=== PATIENT | female | born 1990 | race Caucasian/White ===

== ENCOUNTER 2019-03-17 05:30 | Inpatient (IN) | payer OTHER ==
[2019-03-17 06:45] VITALS: BMI 37.7
[2019-03-17] MEDS ORDERED: CITRIC ACID/SODIUM CITRATE 30 ML UNIT-DOSE CUP PO ONE (06:45)
[2019-03-17] MEDS ORDERED: ELECTROLYTE-148 SOLN 500 ML IV ONE (06:45)
[2019-03-17] MEDS ORDERED: OXYTOCIN 20 UNITS in 0.9% NS 40 UNIT/2,000 ML INFUS.BAG IV ONE (07:30)
[2019-03-17] MEDS ORDERED: morphine SULFATE/PF 0.5 MG/ML (2cc Syringe - QUVA) ONE (07:37)
[2019-03-17] MEDS ORDERED: SUCCINYLCHOLINE CHLORIDE 200 MG/10 ML SYRINGE ONE (07:37)
[2019-03-17] MEDS ORDERED: PROPOFOL 20 ML ONE (07:37)
[2019-03-17] MEDS ORDERED: ELECTROLYTE-148 SOLN 1,000 ML IV SCH ×2 (07:46→09:00)
[2019-03-17] MEDS ORDERED: ePHEDrine SULFATE 50 MG/1 ML AMPULE ONE (07:51)
--- NOTE | 2019-03-17 08:58 | HP ---
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: Alzheimer's, CVA, Dementia, Migraine, Multiple Sclerosis, Peripheral Neuropathy, Parkinson's, Seizure, Syncope, TIA, Vertigo, Other Cardiovascular: No: AFIB, Aneurysm, Aortic Insufficiency, Aortic Stenosis, CAD, CHF, Deep Vein Thrombosis, HTN, Hyperlipdemia, OK, Mitral Insufficiency, Mitral Stenosis, Murmur, Pulmonary Hypertension, Other Pulmonary: No: Asthma, Bronchitis, Cancer, COPD, O2 Dependent, Pneumonia, Previously Intubated, Pulmonary Embolus, Pulmonary Fibrosis, Sleep Apnea, Other Gastrointestinal: No: Ascites, Cancer, Constipation, Crohn's Disease, Diverticulitis, Diverticulosis, Esophageal Varices, Gastritis, GERD, GI Bleed, Hemorrhoids, Hiatal Hernia, Inflamatory Bowel Disease, Irritable Bowel Disease, Pancreatitis, Peptic Ulcer Disease, Ulcerative Colitis, Other Hepatobiliary: No: Cirrhosis, Cholelithiasis, Cholecystitis, Choledocholithiasis , Hepatitis A, Hepatitis B, Hepatitis C, Other Renal/: No: Renal Failure, Renal Inusuff, BPH, Cancer, Hematuria, Hemodialysis , Neurogenic Bladder, Renal Calculi, UTI, Other Reproductive: No: Ectopic , Endometriosis, Fibroids, PID, Polycystic Ovary Syndrome, Postmenopausal, Other ...: 2 ...Para: 0 ...Term: 0 ...: 0 ...Spon : 0 ...Induced : 1 ...Multiple Gestation: 0 ... Weeks Gestation by Dates: 37 ...EDC by Adonis: 04/05/19 Heme/Onc: No: Anemia, B12 Deficiency, Bleeding Disorder, Cancer, Current Chemotherapy, Current Radiation Therapy, Hemochromatosis, Hypercoaguable State, Myeloproliferative Synd, Sickle Cell Disease, Sickle Cell Trait, Thrombocytopenia, Other Infectious Disease: No: AIDS, C-Diff, Herpes Zoster, HIV, MRSA, STD's, Tuberculosis, VREF, Other Psych: No: Addictions, Anxiety, Bipolar, Depression, Panic, Psychosis, Schizophrenia, Other Musculoskeletal: No: Bursitis, Chronic low back pain, Hemiparesis, Hemiplegia, Osteoarthritis, Paraplegia, Other Rheumatology: No: Fibromyalgia, Gout, Lupus, Rheumatoid Arthritis, Sarcoidosis, Vasculitis, Other ENT: No: Allergic Rhinitis, Sinusitis, Other Endocrine: No: Lewis's Disease, Myles's Disease, Diabetes Insipidus, Diabetes Mellitus, Hyperparathyroidism, Hyperthyroidism, Hypothyroidism, Osteopenia, SIADH, Other Dermatology: No: Basal Cell, Cellulitis, Eczema, Melanoma, Psoriasis, Squamous Cell, Other - Past Surgical History Past Surgical History: No: None, AAA Repair, AICD, Amputation, Appendectomy, Arthrosocopy, AV Fistula/Graft, Bariatric Surgery, Breast Biopsy, Bypass, CABG, Carotid Endarterectomy, Cataract Removal, Cholecystectomy, Colectomy, Colonoscopy, Colostomy, Craniotomy, , Cystectomy, Hernia Repair, Hysterectomy, Ileal Conduit, Ileosotomy, Joint Replacement, Kidney Transplant, Laminectomy, Liver Transplant, Mastectomy, Nephrectomy, Oopherectomy, Orchiectomy, Permanent Pacemaker, Prostatectomy, Splenectomy, Stent, Thoracotomy , TURP, Tonsillectomy, Tubal Ligation, Upper Endoscopy, Valve Replacement, Vasectomy, Vein Stripping/Ligation Hx Myomectomy: No Hx Transabdominal Cerclage: No - Advance Directives Advance Directives: Yes: Living Will - Smoking History Smoking history: Never smoked Have you smoked in the past 12 months: No - Alcohol/Substance Use Hx Alcohol Use: No History of Substance Use: reports: None - Social History Usual Living Arrangement: No: Alone, With Spouse, With Parent, With Significant Other, With Child, Assisted Living, [facility], Other ADL: Independent History of Recent Travel: No Home Medications - Allergies Allergies/Adverse Reactions: Allergies Allergy/AdvReac Type Severity Reaction Status Date / Time No Known Allergies Allergy Verified 03/17/19 06:27 - Home Medications Home Medications: Ambulatory Orders Vit 93/Iron Fum/Folic [ Formula Tablet] 1 tab PO DAILY Family Disease History - Family Disease History Family History: Denies Review of Systems - Review of Systems Constitutional: reports: No Symptoms Eyes: reports: No Symptoms HENT: reports: No Symptoms Neck: reports: No Symptoms Cardiovascular: reports: No Symptoms Respiratory: reports: No Symptoms Gastrointestinal: reports: No Symptoms Genitourinary: reports: No Symptoms Breasts: reports: No Symptoms Reported Musculoskeletal: reports: No Symptoms Integumentary: reports: No Symptoms Neurological: reports: No Symptoms Endocrine: reports: No Symptoms Hematology/Lymphatic: reports: No Symptoms Psychiatric: reports: No Symptoms Physical Exam - Maternity Vital Signs: Vital Signs Temperature 98 F 03/17/19 06:30 Pulse Rate 84 03/17/19 06:30 Respiratory Rate 20 03/17/19 06:30 Blood Pressure 120/82 03/17/19 06:30 O2 Sat by Pulse Oximetry (%) Constitutional: Yes: Well Nourished, No Distress, Calm Eyes: Yes: WNL, Conjunctiva Clear, EOM Intact HENT: Yes: WNL, Atraumatic, Normocephalic Neck: Yes: WNL, Supple, Trachea Midline Cardiovascular: Yes: WNL, Regular Rate and Rhythm Lungs: Clear to auscultation Breast(s): Yes: WNL - Abdominal Exam/OB Fundal Height: 36 Number of Fetuses: Single Presentation: Vertex Contractions: Yes Regularity: Irritability Intensity: Mild Monitor Mode: External Heart Rate Location: [facility] Category: I Accelerations: Uniform Decelerations: None - Vaginal Exam/OB Vaginal Bleediing: No Speculum Exam: No Amniotic Membrane Status: Intact Presentation: Vertex/Position Station: -2 - Physical Exam Musculoskeletal: Yes: WNL Extremities: Yes: WNL Edema: No Integumentary: Yes: WNL Deep Tendon Reflex Grade: Normal +2 ...Motor Strength: WNL Psychiatric: Yes: WNL, Alert, Oriented Assessment/Plan for c s
--- NOTE | 2019-03-17 08:59 | OP ---
Operative Note - Note: Operative Date: 03/17/19 Pre-Operative Diagnosis: iugr 5 %, oligo Operation: primary lt c s Post-Operative Diagnosis: Same as Pre-op Surgeon: West Loza Hogshead Opener: Dajuan Pathak Anesthesia: Spinal Estimated Blood Loss (mls): 600 Operative Report Dictated: Yes
[2019-03-17] MEDS ORDERED: oxyCODONE HCL 5 MG TABLET PO PRN (09:00)
[2019-03-17] MEDS ORDERED: METHYLERGONOVINE MALEATE 0.2 MG/1 ML AMP IM PRN (09:00)
[2019-03-17] MEDS ORDERED: IBUPROFEN 800 MG/8 ML IJ IVPB PRN (09:03)
[2019-03-17] MEDS ORDERED: morphine SULFATE/PF 0.5 MG/ML (2cc Syringe - QUVA) EP ONE (09:04)
[2019-03-17] MEDS ORDERED: ONDANSETRON 4 MG/2 ML VIAL IVPUSH PRN (09:04)
[2019-03-17] MEDS: OXYTOCIN 20 UNITS in 0.9% NS 20 UNIT/1,000 ML INFUS.BAG IV SCH ×2 (10:00→19:43)
--- NOTE | 2019-03-17 11:31 | OP ---
DATE OF OPERATION: 03/17/2019 PREOPERATIVE DIAGNOSIS: Intrauterine growth retardation at 5%, per Dr. Posada, and oligohydramnios of 6-7 for the past 4 or 5 weeks. POSTOPERATIVE DIAGNOSIS: Intrauterine growth retardation at 5%, per Dr. Posada, and oligohydramnios of 6-7 for the past 4 or 5 weeks. PROCEDURE: Primary low transverse section. SURGEON: West Loza MD JAVA PERFORMANCE ENGINEER: CHARO Robison ANESTHESIA: Spinal anesthesia. ANESTHESIOLOGIST: Patricia Cobian MD INDICATIONS: This is a 28-year-old female patient currently 37 weeks and 2 days . Has been followed up with the perinatologist, Dr. Posada, for the IUGR and the oligohydramnios of 7 for the past 4 or 5 weeks. Patient has been receiving nonstress test in labor and delivery twice a week because of IUGR at 5 percentile, so the patient was advised to be delivered early at 37 weeks because of IUGR. DESCRIPTION OF PROCEDURE: Patient agreed, and the patient was taken to the OR and placed on the operating table in supine position after the spinal anesthesia was obtained for the section. Patient's abdomen and pelvis were prepped and draped in the usual sterile fashion. Pfannenstiel incision was made. Incision was made through the skin subcutaneous incision. The fascia was nicked in the midline. The fascia extended bilaterally. Intraperitoneal cavity was entered. Bladder flap was created. Low transverse segment of the uterus was entered. Baby was found in LOT position. Baby was handed to the sweep molder after umbilical cord doubly clamped and cut. Cord gas obtained. Placenta removed. No complications. Bladder flap was closed. Uterus closed in single layer. Good hemostasis. Bladder flap was closed. Both gutters cleaned. Both ovaries, fallopian tubes, uterus were normal. No fibers were seen. No cysts were seen. No adhesions were seen. Draining clear urine. Blood loss about 600 mL. Patient's peritoneum was closed. Fascia was closed. Skin was closed. Transferred to recovery room in stable condition. MD ANGEL VIVEROS/[id number]
[2019-03-18] MEDS: IBUPROFEN 600 MG TABLET (FP) PO PRN ×2 (05:36→11:10)
[2019-03-18] MEDS: SIMETHICONE 80 MG TAB.CHEW (FP) PO PRN ×3 (05:36→18:07)
[2019-03-18] MEDS: oxyCODONE HCL 5 MG TABLET PO PRN ×3 (05:37→18:05)
[2019-03-18 07:44] LABS: BASO % 0.3 % (0-2.0); HEMATOCRIT 33.4 % (32.4-45.2); HEMOGLOBIN 11.4 GM/dL (10.7-15.3); LYMPH % 9.6 % (8-40); MCH 31.4 pg (25.7-33.7); MCHC 34.2 g/dl (32.0-36.0); MEAN CELL VOLUME 91.8 fl (80-96); MEAN PLT VOLUME 8.7 fl (7.5-11.1); NEUT % 83.1 % (42.8-82.8); PLATELET COUNT 164 K/MM3 (134-434); RBC 3.64 M/mm3 (3.60-5.2); RDW 14.9 % (11.6-15.6); WHITE BLOOD COUNT 9.3 K/mm3 (4.0-10.0)
[2019-03-18] MEDS ORDERED: BISACODYL 10 MG SUPP.RECT RC PRN (09:01)
--- NOTE | 2019-03-18 09:28 | PN ---
HC Provider Note Provider Note: Anesthesia Post op Pt s/p spinal anesthesia for c/section Pt sitting in chair awake alert pt tolerating po's w/o n/v denies h/a or back pain; ambulating well with no urinary retention good pain control VSS no apparent anesthesia complications Hadley Kenyon.
[2019-03-18] MEDS: ENOXAPARIN NA (PORCINE) 40 MG/0.4 ML DISP.SYRIN SQ SCH (10:39)
--- NOTE | 2019-03-18 19:35 | PN ---
Post Progress Note Post Day: 1 Type of Delivery: Primary C/S Vital Signs: Vital Signs Temperature 97 F L 03/18/19 10:00 Pulse Rate 88 03/18/19 10:00 Respiratory Rate 18 03/18/19 14:00 Blood Pressure 132/82 03/18/19 10:00 O2 Sat by Pulse Oximetry (%) Breast Exam: Yes: Soft Uterus: Yes: Fundus Firm, Fundus below umbilicus, Non-tender Incision: Yes: Dressing dry and intact Abdomen/GI: Yes: Abdomen soft, Passing flatus, Tolerating PO Lochia: Yes: Serosa Lochia, amount: Small Extremities: Yes: Calves non-tender Activity: Ambulating - Labs Labs: CBC WBC 9.3 K/mm3 (4.0-10.0) 03/18/19 05:30 RBC 3.64 M/mm3 (3.60-5.2) 03/18/19 05:30 Hgb 11.4 GM/dL (10.7-15.3) 03/18/19 05:30 Hct 33.4 % (32.4-45.2) 03/18/19 05:30 MCV 91.8 fl (80-96) 03/18/19 05:30 MCH 31.4 pg (25.7-33.7) 03/18/19 05:30 MCHC 34.2 g/dl (32.0-36.0) 03/18/19 05:30 RDW 14.9 % (11.6-15.6) 03/18/19 05:30 Plt Count 164 K/MM3 (134-434) 03/18/19 05:30 MPV 8.7 fl (7.5-11.1) 03/18/19 05:30 Absolute Neuts (auto) 7.7 K/mm3 (1.5-8.0) 03/18/19 05:30 Neutrophils % 83.1 % (42.8-82.8) H D 03/18/19 05:30 Lymphocytes % 9.6 % (8-40) D 03/18/19 05:30 Monocytes % 6.0 % (3.8-10.2) 03/18/19 05:30 Eosinophils % 1.0 % (0-4.5) 03/18/19 05:30 Basophils % 0.3 % (0-2.0) 03/18/19 05:30 Nucleated RBC % 0 % (0-0) 03/18/19 05:30 Assessment/Plan regular diet
[2019-03-19] MEDS: SIMETHICONE 80 MG TAB.CHEW (FP) PO PRN (05:26)
[2019-03-19] MEDS: IBUPROFEN 600 MG TABLET (FP) PO PRN ×3 (05:26→22:15)
[2019-03-19] MEDS: oxyCODONE HCL 5 MG TABLET PO PRN ×2 (05:27→22:15)
--- NOTE | 2019-03-19 08:37 | PN ---
Post Progress Note Post Day: 2 Type of Delivery: Primary C/S Vital Signs: Vital Signs Temperature 98.1 F 03/18/19 21:44 Pulse Rate 100 H 03/18/19 21:44 Respiratory Rate 20 03/18/19 21:44 Blood Pressure 141/68 03/18/19 21:44 O2 Sat by Pulse Oximetry (%) Breast Exam: Yes: Soft Uterus: Yes: Fundus Firm, Fundus below umbilicus Incision: Yes: Dressing dry and intact Abdomen/GI: Yes: Abdomen soft, Passing flatus, Tolerating PO, Other Lochia: Yes: Serosa Lochia, amount: Small Extremities: Yes: Calves non-tender Activity: Ambulating - Labs Labs: CBC WBC 9.3 K/mm3 (4.0-10.0) 03/18/19 05:30 RBC 3.64 M/mm3 (3.60-5.2) 03/18/19 05:30 Hgb 11.4 GM/dL (10.7-15.3) 03/18/19 05:30 Hct 33.4 % (32.4-45.2) 03/18/19 05:30 MCV 91.8 fl (80-96) 03/18/19 05:30 MCH 31.4 pg (25.7-33.7) 03/18/19 05:30 MCHC 34.2 g/dl (32.0-36.0) 03/18/19 05:30 RDW 14.9 % (11.6-15.6) 03/18/19 05:30 Plt Count 164 K/MM3 (134-434) 03/18/19 05:30 MPV 8.7 fl (7.5-11.1) 03/18/19 05:30 Absolute Neuts (auto) 7.7 K/mm3 (1.5-8.0) 03/18/19 05:30 Neutrophils % 83.1 % (42.8-82.8) H D 03/18/19 05:30 Lymphocytes % 9.6 % (8-40) D 03/18/19 05:30 Monocytes % 6.0 % (3.8-10.2) 03/18/19 05:30 Eosinophils % 1.0 % (0-4.5) 03/18/19 05:30 Basophils % 0.3 % (0-2.0) 03/18/19 05:30 Nucleated RBC % 0 % (0-0) 03/18/19 05:30 Assessment/Plan dc pt home tomorrow
--- NOTE | 2019-03-19 08:40 | DS ---
Physical Exam-STORAGE GARAGE ATTENDANT Vital Signs: Vital Signs Temperature 98.1 F 03/18/19 21:44 Pulse Rate 100 H 03/18/19 21:44 Respiratory Rate 20 03/18/19 21:44 Blood Pressure 141/68 03/18/19 21:44 O2 Sat by Pulse Oximetry (%) Constitutional: Yes: Well Nourished, No Distress, Calm Eyes: Yes: WNL, Conjunctiva Clear, EOM Intact HENT: Yes: WNL, Atraumatic, Normocephalic Neck: Yes: WNL, Supple, Trachea Midline Cardiovascular: Yes: WNL, Regular Rate and Rhythm Respiratory: Yes: WNL, Regular, CTA Bilaterally Gastrointestinal: Yes: WNL, Normal Bowel Sounds, Soft ...Rectal Exam: Yes: WNL Renal/: Yes: WNL Pelvis: Yes: WNL External Genitalia: Yes: Normal Internal Exam Deferred: No Vaginal Exam: Yes: Normal Cervix: Yes: Normal Uterus: Yes: Normal ....Post : Yes: Uterus firm, Uterus non-tender Breast(s): Yes: WNL Musculoskeletal: Yes: WNL Extremities: Yes: WNL Edema: Yes Edema: LUE: 1+, RUE: 1+, LLE: 1+, RLE: 1+ Integumentary: Yes: WNL Wound/Incision: Yes: Clean/Dry, Well Approximated Neurological: Yes: WNL, Alert, Oriented ...Motor Strength: WNL Psychiatric: Yes: WNL, Alert, Oriented Labs: CBC, BMP 03/18/19 05:30 Delivery - Delivery Type of Anesthesia: Spinal Episiotomy/Laceration: None EBL (cc): 600 Delivery, Single - Stages of Labor Date of Delivery: 03/17/19 Time of Delivery: 08:04 Time Placenta Delivered: 08:06 - Condition of Plant Tour Guide/Fern Cutter Present: Yes Name: Rafael Carias Infant Gender: Male Weight: 2.438 kg Position: Left, OT Total Hours ROM (Hrs/Mins): 1min. - 1 Minute Total Score: 9 5 Minutes Total Score: 9 - Feeding Plan Initial Plan: Elected not to breastfeed exclusively throughout hospitalization Discharge Summary Reason For Visit: SCHEDULED C/S Condition: Stable - Instructions Diet, Activity, Other Instructions: regular Disposition: HOME - Home Medications Comprehensive Discharge Medication List: Ambulatory Orders Vit 93/Iron Fum/Folic [ Formula Tablet] 1 tab PO DAILY
[2019-03-19] MEDS: ENOXAPARIN NA (PORCINE) 40 MG/0.4 ML DISP.SYRIN SQ SCH (09:33)
--- NOTE | 2019-03-19 11:44 | PATH ---
Surgical Pathology Report Patient Name: JOSEPH ENGLE [facility]. Rec. #: [id number] /Age/Gender: 1990 (Age: 28) / F Account: [id number] Location: [facility] OBS/MANAGER DOCUMENT Taken: 03/17/2019 Received: 03/17/2019 Reported: 03/19/2019 Physicians: West Loza MD Specimen(s) Received PLACENTA Clinical History , possible IUGR , Final Diagnosis PLACENTA: THIRD TRIMESTER PLACENTA. TRIVASCULAR CORD. MEMBRANES WITH NO DIAGNOSTIC ABNORMALITIES. Electronically Signed Scott Mendoza M.D. Gross Description The specimen is received fresh labeled placenta and is a 353 gram, 17 x15 x 1.8cm. placenta with attached membranes and umbilical cord. The attached membranes are glistening, translucent, and insert marginally. The umbilical cord measures 51 cm. in length and averages 1.3 cm. in diameter. The cord inserts centrally, 4 centimeter to the nearest margin. No true knots or strictures are identified. Cut surface of the umbilical cord reveals 3 vessels. Sectioning reveals red-brown, spongy parenchyma. No lesions are identified. Pit Clerk sections are submitted in three cassettes as follows: 1- membrane rolls and umbilical cord; 2-3- full thickness sections of placenta KWS/03/17/2019 [email or web address]/03/17/2019
[2019-03-19 21:18] VITALS: PULSE 77; TEMP 97.6
[2019-03-20] MEDS: oxyCODONE HCL 5 MG TABLET PO PRN (05:37)
[2019-03-20] MEDS: IBUPROFEN 600 MG TABLET (FP) PO PRN (05:37)
[2019-03-20] MEDS: SIMETHICONE 80 MG TAB.CHEW (FP) PO PRN (05:37)
[2019-03-20 09:09] VITALS: BP 118/78
[2019-03-20 09:38] LABS: BASO % 0.4 % (0-2.0); EOS % 1.7 % (0-4.5); HEMATOCRIT 34.5 % (32.4-45.2); HEMOGLOBIN 11.7 GM/dL (10.7-15.3); LYMPH % 21.2 % (8-40); MCH 31.5 pg (25.7-33.7); MCHC 33.8 g/dl (32.0-36.0); MEAN CELL VOLUME 93.2 fl (80-96); MEAN PLT VOLUME 8.5 fl (7.5-11.1); MONO % 5.2 % (3.8-10.2); NEUT % 71.5 % (42.8-82.8); PLATELET COUNT 197 K/MM3 (134-434); RDW 15.1 % (11.6-15.6); WHITE BLOOD COUNT 8.1 K/mm3 (4.0-10.0)
[2019-03-20] MEDS: ENOXAPARIN NA (PORCINE) 40 MG/0.4 ML DISP.SYRIN SQ SCH (10:07)
== END 2019-03-20 13:10 | disposition home or self-care (01) | DRG 787 ==
LOC: JLDR 05:30 → J3W 10:35
PROVIDERS: ADMIT Obstetrics & Gynecology; ATTEND Obstetrics & Gynecology
PROC: 10D00Z1 Extraction of Products of Conception, Low, Open Approach (ICD-10-PCS; principal; 2019-03-17)
DX: O36.5930 Maternal care for other known or suspected poor fetal growth, third trimester, not applicable or unspecified (principal); O41.03X0 Oligohydramnios, third trimester, not applicable or unspecified; Z3A.37 37 weeks gestation of pregnancy; Z37.0 Single live birth
CPT/HCPCS: 36415; 80053; 85025; 85610; 85730; 86593; 86762; 86850; 86900; 86901; 88307-TC